=== PATIENT | female | born 1985 | race African-American/Black ===

== ENCOUNTER 2024-09-29 22:05 | Emergency (ER) | payer SELFPAY ==
[~2024-09-29] VITALS: Ht 157.5 cm; Wt 49.6 kg
[2024-09-29 22:13] VITALS: BP 166/83; PULSE 95; RESP 18; TEMP 98.4; O2SAT 98
== END 2024-09-30 01:42 | disposition left against medical advice (07) ==
LOC: ER 22:05
DX: K08.89 Other specified disorders of teeth and supporting structures (principal); Z53.21 Procedure and treatment not carried out due to patient leaving prior to being seen by health care provider